=== PATIENT | male | born 1975 | race Caucasian/White ===

== ENCOUNTER 2020-06-26 16:32 | Emergency (ER) | payer BC, SELFPAY ==
[2020-06-26] MEDS ORDERED: Mupirocin 2% Ointment 22 GM Tube ONE (17:33)
[2020-06-26] MEDS ORDERED: Clindamycin 150 MG CAP ONE (17:33)
[2020-06-26] MEDS ORDERED: HYDROcodone/Acetaminophen 5/325 mg Tablet ONE (17:33)
== END 2020-06-26 17:43 | disposition home or self-care (01) ==
LOC: MADERS 16:32
DX: K13.0 Diseases of lips (principal); E11.9 Type 2 diabetes mellitus without complications; E78.5 Hyperlipidemia, unspecified; I10 Essential (primary) hypertension; F17.210 Nicotine dependence, cigarettes, uncomplicated; Z79.84 Long term (current) use of oral hypoglycemic drugs
CPT/HCPCS: 99283

== ENCOUNTER 2022-01-14 20:06 | Emergency (ER) | payer BC, SELFPAY ==
[2022-01-14 20:51] LABS: #Basophils 0.1 thou/uL (0.0-0.2); #Eosinphils 0.7 thou/uL (0.0-0.7); #Lymphocytes 1.6 thou/uL (1.20-3.40); #Monocytes 0.8 thou/uL (0.11-0.59); #Neutrophils 6.6 thou/uL (1.40-6.50); %Basophils 1.2 % (0.0-1.0); %Eosinophils 6.8 % (0.0-10.0); %Monocytes 8.2 % (0.0-10.0); %Neutrophils 67.8 % (42.0-75.0); Hemoglobin 14.1 g/dL (14.0-18.0); Mean Corpuscular HGB CONC 32.7 g/dL (32.0-36.0); Mean Corpuscular Hemoglobin 28.4 pg (27.0-31.0); Mean Corpuscular Volume 86.8 fl (78.0-98.0); Platelet Count 272 thou/uL (130-400); RBC Distribution Width 10.7 % (11.5-14.5); Red Blood Cell (RBC) Count 4.98 mill/uL (4.70-6.10); White Blood Cell (WBC) Count 9.8 thou/uL (4.8-10.8)
[2022-01-14] MEDS ORDERED: Piperacillin/Tazobactam 3.375 GM VIAL ONE (21:02)
[2022-01-14] MEDS ORDERED: Sodium Chloride 0.9% 100 ML ONE (21:02)
[2022-01-14] MEDS ORDERED: Sodium Chloride 0.9% 250 ML 250 ML ONE (21:03)
[2022-01-14 21:18] LABS: ALT (SGPT) 26 U/L (8-55); AST (SGOT) 25 U/L (5-34); Alkaline Phosphatase 87 U/L (40-110); Anion Gap 13 mmol/L (10-20); BUN (Urea Nitrogen) 9 mg/dL (8.9-20.6); Bilirubin, Total 0.4 mg/dL (0.2-1.2); Calc. Creatinine Clearance 0 mL/min (70-130); Calcium 9.1 mg/dL (7.8-10.44); Carbon Dioxide 28 mmol/L (22-29); Chloride 101 mmol/L (98-107); Estimated GFR 110; Glucose 124 mg/dL (70-105); Potassium 4.5 mmol/L (3.5-5.1); Sodium 137 mmol/L (136-145)
== END 2022-01-14 22:44 | disposition home or self-care (01) ==
LOC: MADERS 20:06
DX: L03.115 Cellulitis of right lower limb (principal); E11.9 Type 2 diabetes mellitus without complications; I10 Essential (primary) hypertension; E78.5 Hyperlipidemia, unspecified; Z79.84 Long term (current) use of oral hypoglycemic drugs
CPT/HCPCS: 80053; 83605; 85025; 86140; 87040; 96365; 96367; J2543; J3370; J3490; J7050

== ENCOUNTER 2023-11-30 18:41 | Emergency (ER) | payer BC, OTHER, SELFPAY ==
[2023-11-30] MEDS ORDERED: Clindamycin 150 MG CAP ONE (19:10)
[2023-11-30] MEDS ORDERED: Ibuprofen 800 MG TAB ONE (19:11)
== END 2023-11-30 19:19 | disposition home or self-care (01) ==
LOC: MADERS 18:41
DX: L03.211 Cellulitis of face (principal); I10 Essential (primary) hypertension; E11.9 Type 2 diabetes mellitus without complications; F17.210 Nicotine dependence, cigarettes, uncomplicated
CPT/HCPCS: 99283

== ENCOUNTER 2024-03-12 21:07 | Emergency (ER) | payer OTHER | END 2024-03-12 22:08 | disposition home or self-care (01) | LOC: MADERS 21:07 | DX: L08.9 Local infection of the skin and subcutaneous tissue, unspecified (principal); I10 Essential (primary) hypertension; E11.9 Type 2 diabetes mellitus without complications; F17.210 Nicotine dependence, cigarettes, uncomplicated; Z79.4 Long term (current) use of insulin | CPT/HCPCS: 99283 ==

== ENCOUNTER 2024-04-14 16:26 | Emergency (ER) | payer OTHER ==
[2024-04-14 17:16] LABS: #Basophils 0.1 thou/uL (0.0-0.2); #Eosinophils 0.7 thou/uL (0.0-0.7); #Lymphocytes 1.9 thou/uL (1.20-3.40); #Monocytes 0.6 thou/uL (0.11-0.59); #Neutrophils 6.5 thou/uL (1.40-6.50); %Basophils 1.1 % (0.0-1.0); %Eosinophils 7.4 % (0.0-10.0); %Lymphocytes 19.2 % (21.0-51.0); %Monocytes 6.1 % (0.0-10.0); %Neutrophils 66.2 % (42.0-75.0); Hematocrit 42.3 % (42.0-52.0); Hemoglobin 13.1 g/dL (14.0-18.0); Mean Corpuscular HGB CONC 30.9 g/dL (32.0-36.0); Mean Corpuscular Hemoglobin 26.2 pg (27.0-31.0); Mean Corpuscular Volume 84.5 fl (78.0-98.0); Mean Platelet Volume 8.6 fL (7.4-10.4); Platelet Count 379 10x3/uL (130-400); RBC Distribution Width 12.1 % (11.5-14.5); White Blood Cell (WBC) Count 9.8 10x3/uL (4.8-10.8)
[2024-04-14] MEDS ORDERED: Sodium Chloride 0.9% 1,000 ML ONE (17:17)
[2024-04-14] MEDS ORDERED: Piperacillin/Tazobactam 3.375 GM VIAL ONE (17:17)
[2024-04-14] MEDS ORDERED: Vancomycin 1 GM VIAL ONE (17:17)
[2024-04-14] MEDS ORDERED: Acetaminophen 500 MG TAB ONE (17:17)
[2024-04-14] MEDS ORDERED: Sodium Chloride 0.9% 250 ML 250 ML ONE (17:17)
[2024-04-14] MEDS ORDERED: Sodium Chloride 0.9% 100 ML ONE (17:17)
[2024-04-14] MEDS ORDERED: Ketorolac Tromethamine 30 MG (1 mL) VIAL ONE (17:17)
[2024-04-14 17:35] LABS: ALT (SGPT) 23 U/L (Less than 45); AST (SGOT) 21 U/L (11-34); Albumin 3.8 g/dL (3.1-4.5); Alkaline Phosphatase 145 U/L (40-110); Anion Gap 15 mmol/L (10-20); BUN (Urea Nitrogen) 8 mg/dL (8.9-20.6); Bilirubin, Total 0.4 mg/dL (0.3-1.2); CK (CPK) 72 U/L (30-200); Calc. Creatinine Clearance 0 mL/min (70-130); Calcium 9.5 mg/dL (7.8-10.44); Carbon Dioxide 25 mmol/L (22-29); Chloride 102 mmol/L (98-107); Estimated GFR 113; Glucose 107 mg/dL (70-105); Potassium 3.8 mmol/L (3.5-5.1); Protein, Total 8.8 g/dL (6.0-8.3); Sodium 138 mmol/L (136-145)
[2024-04-14 17:38] LABS: PTT 34.1 sec (22.9-36.1); Prothrombin Time 13.5 sec (12.0-14.7)
== END 2024-04-14 19:19 | disposition short-term general hospital (02) ==
LOC: MADERS 16:26
DX: L03.115 Cellulitis of right lower limb (principal); L02.611 Cutaneous abscess of right foot; I10 Essential (primary) hypertension; E11.9 Type 2 diabetes mellitus without complications; L08.9 Local infection of the skin and subcutaneous tissue, unspecified; E78.5 Hyperlipidemia, unspecified; F17.210 Nicotine dependence, cigarettes, uncomplicated
CPT/HCPCS: 36415; 71046; 80053; 82010; 82550; 83605; 85025; 85610; 85730; 87040; 96365; 96367; 96375; J1885; J2543; J3370; J7030; J7050

== ENCOUNTER 2024-10-11 13:25 | Emergency (ER) | payer BC, OTHER ==
[2024-10-11] MEDS ORDERED: Ondansetron PF 4 MG/2 ML Vial ONE (13:58)
[2024-10-11 14:29] LABS: Hematocrit 42.5 % (42.0-52.0); Hemoglobin 13.3 g/dL (14.0-18.0); Mean Corpuscular Hemoglobin 28.1 pg (27.0-31.0); Mean Corpuscular Volume 89.4 fl (78.0-98.0); Platelet Count 252 10x3/uL (130-400); Red Blood Cell (RBC) Count 4.75 mill/uL (4.70-6.10); White Blood Cell (WBC) Count 11.4 10x3/uL (4.8-10.8)
[2024-10-11 14:44] LABS: Troponin I 0.013 ng/mL (< 0.028)
[2024-10-11 14:45] LABS: ALT (SGPT) 32 U/L (Less than 45); AST (SGOT) 231 U/L (11-34); Albumin 2.9 g/dL (3.1-4.5); Alkaline Phosphatase 455 U/L (40-110); Anion Gap 16 mmol/L (10-20); BUN (Urea Nitrogen) 8 mg/dL (8.9-20.6); Bilirubin, Total 1.5 mg/dL (0.3-1.2); CK (CPK) 655 U/L (30-200); Calc. Creatinine Clearance 0 mL/min (70-130); Calcium 8.2 mg/dL (7.8-10.44); Carbon Dioxide 28 mmol/L (22-29); Chloride 99 mmol/L (98-107); Globulin 3.4 g/dL (2.4-3.5); Glucose 198 mg/dL (70-105); Lipase 137 U/L (8-78); Magnesium 1.8 mg/dL (1.6-2.6); Potassium 4.7 mmol/L (3.5-5.1); Sodium 138 mmol/L (136-145)
[2024-10-11 14:50] LABS: MDiff Complete? YES; Manual Diff?? YES
[2024-10-11 14:51] LABS: Platelet Adequacy Comment Appears Adequate
[2024-10-11 18:04] LABS: Glucose, Urine (Dipstick) 100 mg/dL (Negative); Leukocyte Negative (Negative); Protein, Urine (Dipstick) 100 mg/dL (Neg-Trace); Specific Gravity, Urine 1.020 (1.005-1.030)
[2024-10-11 18:16] LABS: Bacteria/HPF Rare-Few HPF (None Seen); CAUTI Indications for Culture Dysuria,urgency,freq; Mucous/LPF 1+ LPF (<2+); RBC/HPF None Seen HPF (0-3); WBC/HPF 0-3 HPF (0-3)
[2024-10-11 18:20] LABS: Cocaine Metabolite Screen Negative (Negative); THC/Cannabinoid Screen PRELIM POSITIVE (Negative); Tricyclic Screen Negative (Negative)
[2024-10-11 18:21] LABS: Urine Culture Reflex No No
[2024-10-11] MEDS ORDERED: D5 1/4 NS 1,000 ML ONE (19:12)
== END 2024-10-11 20:08 | disposition short-term general hospital (02) ==
LOC: MADERS 13:25
DX: E11.9 Type 2 diabetes mellitus without complications (principal); R62.7 Adult failure to thrive; R44.0 Auditory hallucinations; R83.0 Abnormal level of enzymes in cerebrospinal fluid; R64 Cachexia; R74.8 Abnormal levels of other serum enzymes; I10 Essential (primary) hypertension; F17.210 Nicotine dependence, cigarettes, uncomplicated
CPT/HCPCS: 36415; 70450; 71045; 80053; 80306; 81001; 82550; 83605; 83690; 83735; 83880; 84484; 85025; 87070; 87077; 87186; 87205; 93005; 96361; 96374; 96375; J2405; J3010; J7030; J7042

== ENCOUNTER 2024-12-21 19:06 | Emergency (ER) | payer MEDICAID ==
[~2024-12-21 19:06] MED LIST: Iopamidol 370 76% 100 ML VIAL ONE
[2024-12-21 20:05] LABS: Hematocrit 35.1 % (42.0-52.0); Hemoglobin 11.2 g/dL (14.0-18.0); MDiff Complete? YES; Mean Corpuscular Hemoglobin 29.7 pg (27.0-31.0); Mean Corpuscular Volume 93.1 fl (78.0-98.0); Platelet Count 256 10x3/uL (130-400); Red Blood Cell (RBC) Count 3.77 mill/uL (4.70-6.10); Reflex for Review?? NO; White Blood Cell (WBC) Count 60.8 10x3/uL (4.8-10.8)
[2024-12-21 20:06] LABS: ALT (SGPT) 33 U/L (Less than 45); AST (SGOT) 199 U/L (11-34); Albumin 3.0 g/dL (3.1-4.5); Alkaline Phosphatase 1062 U/L (40-110); Anion Gap 16 mmol/L (10-20); BUN (Urea Nitrogen) 5 mg/dL (8.9-20.6); Bilirubin, Total 0.8 mg/dL (0.3-1.2); Calc. Creatinine Clearance 0 mL/min (70-130); Calcium 8.6 mg/dL (7.8-10.44); Carbon Dioxide 27 mmol/L (22-29); Chloride 100 mmol/L (98-107); Globulin 3.4 g/dL (2.4-3.5); Glucose 291 mg/dL (70-105); Potassium 3.3 mmol/L (3.5-5.1); Sodium 140 mmol/L (136-145)
[2024-12-21 20:12] LABS: Troponin I 0.012 ng/mL (< 0.028)
[2024-12-21 22:36] LABS: Troponin I Less than 0.010 ng/mL (< 0.028)
[2024-12-22] MEDS ORDERED: NS 0.9% w/ 20 MEQ KCL 1,000 ML ONE (00:52)
[2024-12-22] MEDS ORDERED: Ketorolac Tromethamine 30 MG (1 mL) VIAL ONE (00:52)
== END 2024-12-22 03:23 | disposition short-term general hospital (02) ==
LOC: MADERS 19:06
DX: R53.1 Weakness (principal); D72.829 Elevated white blood cell count, unspecified; E11.9 Type 2 diabetes mellitus without complications; I10 Essential (primary) hypertension; F17.210 Nicotine dependence, cigarettes, uncomplicated
CPT/HCPCS: 36415; 71045; 71275; 84484; 85025; 85379; 93005; 94760; 96374; 96375; J1885; J3010; J3480; J7030; Q9967